=== PATIENT | male | born 1940 | race Caucasian/White ===

== ENCOUNTER 2018-03-14 12:08 | Outpatient (CLI) | payer MEDICARE ==
--- NOTE | 2018-03-14 14:32 | RAD ---
TWO VIEWS CHEST: Comparison: 02-12-08 History: Dyspnea. FINDINGS: Two views of the chest shows a normal sized cardiomediastinal silhouette with atherosclerotic calcifi cations in the aorta. There is no evidence of consolidation, mass, or pleural effusions. Degenerative changes are seen in the spine. IMPRESSION: No evidence of acute cardiopulmonary disease. POS: [facility]
== END 2018-03-14 12:09 | disposition home or self-care (01) ==
LOC: RAD 12:08
PROVIDERS: ATTEND Internal Medicine Pulmonary Disease
DX: R06.00 Dyspnea, unspecified (principal)
CPT/HCPCS: 71046